=== PATIENT | female | born 1965 | race Caucasian/White ===

== ENCOUNTER 2016-12-28 11:01 | Day surgery (SDC) | payer MEDICARE, SELFPAY ==
[~2016-12-28 11:01] MED LIST: ADDERAL XR PO; ADDERALL 30 MG30 M2 PO; ALDACTONE25 M1 PO; BACTRIM DS TABL1 TAB PO; CEPHALEXIN500 MG; CIPRO500 MG PO; COREG3.125 M1 PO; CORLANOR5 MG PO; COUMADIN5 M2 PO; DEMADEX20 M1 PO; DIFLUCAN150 MG PO; HYDROCODON-ACE1 EAC7 PO; IBUPROFEN800 MG PO; IMITREX100 MG PO; LAMISIL PO; LOVENOX80 MG/0.1 SC; MIDODRINE HCL5 M1 PO; NUCYNTA ER150 M1 PO; NUCYNTA PO; ORTHO EVRA1 PATCH.WK; TOPROL XL50 M1 PO; VITAMIN D31000 UNI3 PO; WELLBUTRIN XL300 M3 PO
[2016-12-28] MEDS ORDERED: LANOXIN125 MC3 (12:43)
[2016-12-28] MEDS ORDERED: POTASSIUM CHLO10 ME2 PO (12:44)
[2016-12-28] MEDS ORDERED: REQUIP0.25 M1 PO (12:46)
[2016-12-28] MEDS ORDERED: IMITREX100 M2 PO (12:47)
[2016-12-28] MEDS ORDERED: IBUPROFEN800 M1 PO (12:47)
[2016-12-28] MEDS ORDERED: LUNESTA1 M1 PO (12:48)
[2016-12-28] MEDS ORDERED: LORAZEPAM0.5 M1 PO (12:49)
[2016-12-28] MEDS ORDERED: PROTONIX40 M2 PO (15:57)
[2016-12-28] MEDS ORDERED: LANOXIN125 MC3 PO (15:57)
[2016-12-28] MEDS ORDERED: HYDROXYZINE PAM25 M2 PO (15:59)
[2017-04-28] MEDS ORDERED: OXYCONTIN15 M1 PO (11:29)
[2017-04-28] MEDS ORDERED: POTASSIUM CHLO20 ME3 PO (11:35)
[2017-04-28] MEDS ORDERED: COMPAZINE10 MG PO (11:37)
== END 2016-12-28 16:55 ==
LOC: SRG 11:01 → SHSB 11:02 → ORW 13:12 → PACU 14:09 → SHSB 15:30
PROC: 0H5GXZD Destruction of Left Hand Skin, Multiple, External Approach (ICD-10-PCS; principal; 2016-12-28)
DX: L90.5 Scar conditions and fibrosis of skin (principal); I25.2 Old myocardial infarction; I25.10 Atherosclerotic heart disease of native coronary artery without angina pectoris; I50.42 Chronic combined systolic (congestive) and diastolic (congestive) heart failure; I34.1 Nonrheumatic mitral (valve) prolapse; F32.9 Major depressive disorder, single episode, unspecified; F43.10 Post-traumatic stress disorder, unspecified; K21.9 Gastro-esophageal reflux disease without esophagitis; F17.210 Nicotine dependence, cigarettes, uncomplicated; Z79.899 Other long term (current) drug therapy; Z88.5 Allergy status to narcotic agent; Z88.8 Allergy status to other drugs, medicaments and biological substances; Z98.890 Other specified postprocedural states
CPT/HCPCS: J0690; J1170; J2250; J3010